=== PATIENT | female | born 1955 | race Caucasian/White ===

== ENCOUNTER 2017-12-18 06:57 | Emergency (ER) | payer MEDICAID ==
[~2017-12-18] VITALS: Ht 165.1 cm; Wt 54.0 kg
[~2017-12-18 06:57] MED LIST: CITA10TA16 PO; GABA100C PO
[2017-12-18] MEDS ORDERED: KETOROLAC 60MG/2ML VIAL IM STA (08:15)
[2017-12-18 09:12] LABS: CLARITY URINE CLEAR (CLEAR); COLOR URINE YELLOW (YELLOW); KETONES URINE TRACE (NEGATIVE); LEUKOCYTE ESTERASE URINE NEGATIVE (NEGATIVE); NITRITE URINE NEGATIVE (NEGATIVE); OCCULT BLOOD URINE NEGATIVE (NEGATIVE); PH URINE 8.5 (4.5-8.0); PROTEIN URINE NEGATIVE (NEGATIVE); SPECIFIC GRAVITY URINE 1.014 (1.005-1.030); UROBILINOGEN URINE 0.2 E.U./dL (0.2-1.0)
[2017-12-18] MEDS ORDERED: TRAMADOL 50MG TABLET PO ONE (10:30)
[2017-12-18] MEDS ORDERED: ACETAMINOPHEN 325MG TABLET PO STA (12:32)
[2017-12-18] MEDS ORDERED: MORPHINE SULFATE 10 MG/ML CPJ IM NR (14:00)
[2017-12-18 15:40] VITALS: BP 116/75
== END 2017-12-18 15:58 | disposition home or self-care (01) ==
LOC: ER 07:18
DX: M54.5 Low back pain (principal); G89.29 Other chronic pain; Z88.5 Allergy status to narcotic agent; Z91.018 Allergy to other foods; Z98.1 Arthrodesis status
CPT/HCPCS: 72100; 81003; 96367; 99285; J1885; J2270; Z7610

== ENCOUNTER 2018-01-12 23:41 | Emergency (ER) | payer MEDICAID ==
[~2018-01-12] VITALS: Ht 162.6 cm; Wt 61.0 kg
[2018-01-13] MEDS ORDERED: KETOROLAC 30MG/ML VIAL IV ONE (00:15)
[2018-01-13 02:28] LABS: CLARITY URINE CLEAR (CLEAR); COLOR URINE YELLOW (YELLOW); KETONES URINE NEGATIVE (NEGATIVE); LEUKOCYTE ESTERASE URINE NEGATIVE (NEGATIVE); NITRITE URINE NEGATIVE (NEGATIVE); OCCULT BLOOD URINE NEGATIVE (NEGATIVE); PH URINE 5.5 (4.5-8.0); PROTEIN URINE NEGATIVE (NEGATIVE); SPECIFIC GRAVITY URINE 1.007 (1.005-1.030); UROBILINOGEN URINE 0.2 E.U./dL (0.2-1.0)
[2018-01-13 04:20] VITALS: BP 113/66
== END 2018-01-13 04:20 | disposition home or self-care (01) ==
LOC: ER 23:41
DX: M54.9 Dorsalgia, unspecified (principal); G89.29 Other chronic pain; Z88.5 Allergy status to narcotic agent; F17.200 Nicotine dependence, unspecified, uncomplicated
CPT/HCPCS: 81003; 96374; 99284; J1885; P9612; Z7610

== ENCOUNTER 2018-01-15 08:26 | Emergency (ER) | payer MEDICAID ==
[~2018-01-15] VITALS: Ht 162.6 cm; Wt 54.0 kg
[2018-01-15] MEDS ORDERED: ACETAMINOPHEN WITH CODEINE 300/30MG TABLET PO ONE (10:30)
[2018-01-15] MEDS ORDERED: ONDANSETRON 4MG ODT PO ONE (13:30)
[2018-01-15 15:16] VITALS: BP 122/70
== END 2018-01-15 15:17 | disposition home or self-care (01) ==
LOC: ER 08:26
DX: M11.262 Other chondrocalcinosis, left knee (principal); Z91.81 History of falling; Z88.5 Allergy status to narcotic agent; Z91.018 Allergy to other foods
CPT/HCPCS: 73590; 99284; Z7610